=== PATIENT | male | born 1985 | race Caucasian/White ===

== ENCOUNTER 2022-01-08 11:45 | Emergency (ER) | payer OTHER ==
[~2022-01-08 11:45] MED LIST: CEPHALEXIN500 M1 PO; NORCO 325 MG-51 TA1 PO; NORCO 325 MG-7.1 TA1 PO; PRILOSEC 20MG20 MG PO; TESSALON PERLE100 M1 PO; ZITHROMAX Z PA250 MG PO; ZYRTEC10 M3 PO
[2022-01-08 11:49] VITALS: BP 134/97
== END 2022-01-08 12:27 | disposition home or self-care (01) ==
LOC: ED 11:45
DX: S61.012A Laceration without foreign body of left thumb without damage to nail, initial encounter (principal); F17.200 Nicotine dependence, unspecified, uncomplicated; Z28.310 Unvaccinated for COVID-19; W26.8XXA Contact with other sharp object(s), not elsewhere classified, initial encounter; Y93.G1 Activity, food preparation and clean up; Y92.009 Unspecified place in unspecified non-institutional (private) residence as the place of occurrence of the external cause

== ENCOUNTER 2022-05-01 17:58 | Emergency (ER) | payer OTHER ==
[~2022-05-01] VITALS: Ht 188 cm; Wt 109.1 kg
[2022-05-01 18:39] LABS: HEMATOCRIT 45.5 % (42.0-52.0); HEMOGLOBIN 15.6 g/dL (13.5-18.0); MEAN CELL VOLUME 89 fl (78-100); MEAN CORPUSCULAR HEMOGLOBIN 31 pg (27-31); MEAN CORPUSCULAR HGB CONC 34 g/dL (33-37); MEAN PLATELET VOLUME 9.8 fl (7.4-10.4); PLATELET COUNT 168 K/mm3 (130-400); RED CELL DISTRIBUTION WIDTH 12.8 % (11.5-14.5); WHITE BLOOD COUNT 2.8 K/mm3 (4.8-10.8)
[2022-05-01 19:22] LABS: URINE APPEARANCE CLEAR; URINE COLOR YELLOW; URINE PROTEIN(semi-quant) 1+ (NEGATIVE)
[2022-05-01 19:22] LABS: BAND 2 % (0-10); LYMPHOCYTE 14 % (20-51); MONOCYTE 14 % (3-10); NEUTROPHILS 70 % (42-75)
[2022-05-01 19:23] LABS: URINE BILIRUBIN NEGATIVE (NEGATIVE); URINE BLOOD TRACE (NEGATIVE); URINE GLUCOSE NEGATIVE (NEGATIVE); URINE KETONE NEGATIVE (NEGATIVE); URINE LEUKOCYTE ESTERASE NEGATIVE (NEGATIVE); URINE MUCUS PRESENT (NOT PRESENT); URINE NITRATE NEGATIVE (NEGATIVE); URINE UROBILINOGEN NORMAL (NORMAL)
[2022-05-01 20:38] VITALS: BP 145/80
== END 2022-05-01 20:38 | disposition home or self-care (01) ==
LOC: ED 17:58
PROVIDERS: Family Medicine
DX: U07.1 COVID-19 (principal); R82.81 Pyuria; F17.210 Nicotine dependence, cigarettes, uncomplicated; Z28.310 Unvaccinated for COVID-19